=== PATIENT | female | born 1955 | race Caucasian/White ===

== ENCOUNTER 2021-07-07 09:20 | Outpatient (CLI) | payer OTHER | END 2021-07-07 09:21 | disposition home or self-care (01) | LOC: DTY/OP 09:20 | PROVIDERS: ATTEND Surgery | DX: E66.01 Morbid (severe) obesity due to excess calories (principal) | CPT/HCPCS: 97802 ==

== ENCOUNTER 2021-08-20 10:15 | Inpatient (IN) | payer MEDICARE ==
[2021-08-23 11:58] VITALS: BMI 43.5
[2021-08-25] MEDS ORDERED: Fentanyl 100 MCG/2 ML VIAL ONE ×2 (06:17→09:36)
[2021-08-25] MEDS ORDERED: Propofol 500 MG/50 ML VIAL ONE (06:17)
[2021-08-25] MEDS ORDERED: Lidocaine 1% w/Epinephrine 1:100K 20 ML VIAL ONE (06:50)
[2021-08-25] MEDS ORDERED: Bupivacaine 0.25% HCL 30 ML VIAL ONE (06:50)
[2021-08-25] MEDS ORDERED: Promethazine HCl 25 MG/ML VIAL IVPB PRN (06:55)
[2021-08-25] MEDS ORDERED: Promethazine HCl 25 MG/ML VIAL IM PRN ×3 (06:55→09:58)
[2021-08-25] MEDS ORDERED: Ondansetron HCl/PF 4 MG/2 ML Vial IVP PRN (06:55)
[2021-08-25] MEDS ORDERED: Scopolamine 1.5 mg/72 hour Patch ONE (07:00)
[2021-08-25] MEDS ORDERED: Midazolam HCl 2 mg/2 ml Vial ONE (07:20)
[2021-08-25] MEDS ORDERED: Ondansetron PF 4 MG/2 ML Vial ONE ×2 (07:41→09:36)
[2021-08-25] MEDS ORDERED: Dexamethasone 20 MG/5 ML VIAL ONE (07:41)
[2021-08-25] MEDS ORDERED: Rocuronium Bromide 10 MG/ML (10ML VIAL) ONE (07:41)
[2021-08-25] MEDS ORDERED: Ketorolac Tromethamine 30 MG/ML VIAL ONE (07:41)
[2021-08-25] MEDS ORDERED: PROPOFOL 200 MG/20 ML VIAL ONE (07:41)
[2021-08-25] MEDS ORDERED: ePHEDrine 50 MG/ML VIAL ONE (07:41)
[2021-08-25] MEDS ORDERED: PHENYLEPHRINE-NS 100 MCG/ML 10 ML SYRINGE ONE (07:41)
[2021-08-25] MEDS ORDERED: Succinylcholine 200 MG/10 ml SYRINGE FS ONE (07:41)
[2021-08-25] MEDS ORDERED: Albuterol Sulfate HFA (OR ONLY) ONE (08:30)
[2021-08-25] MEDS ORDERED: SUGAMMADEX SODIUM 200 MG/2 ML VIAL ONE (08:58)
[2021-08-25] MEDS ORDERED: Dextrose 5% in Water 1,000 ML IV PRN (09:43)
[2021-08-25] MEDS ORDERED: diphenhydrAMINE 50 MG/ML VIAL IVP PRN ×2 (09:43→09:58)
[2021-08-25] MEDS ORDERED: Dextrose 50% Abboject 50 ML SYRINGE SLOW IVP PRN (09:43)
[2021-08-25] MEDS ORDERED: hydrALAZINE 20 MG/ML VIAL SLOW IVP PRN (09:43)
[2021-08-25] MEDS ORDERED: Ondansetron PF 4 MG/2 ML Vial IVP PRN ×2 (09:43→09:58)
[2021-08-25] MEDS ORDERED: Hydrocodone-Acetamin 15 ML UDCUP PO PRN (09:43)
[2021-08-25] MEDS ORDERED: fentaNYL Citrate/PF 2,000 MCG in Sodium Chloride 0.9% 60 ML IV PRN (09:58)
[2021-08-25] MEDS ORDERED: Naloxone HCl 0.4 mg/ml Vial IV PRN (09:58)
[2021-08-25] MEDS ORDERED: diphenhydrAMINE 50 MG/ML VIAL IM PRN (09:58)
[2021-08-25] MEDS ORDERED: diphenhydrAMINE 25 MG CAP PO PRN (09:58)
[2021-08-25] MEDS ORDERED: Zolpidem Tartrate 5 MG TAB PO PRN (09:58)
[2021-08-25] MEDS ORDERED: PCA Communication Order-Pharmacy FS SCH (10:00)
[2021-08-25] MEDS: D5 1/2 NS w/20 mEq KCL 1,000 ML IV SCH ×2 (15:07→23:36)
[2021-08-25] MEDS: CEFAZOLIN 2 GM, Admixture Fee 1 EACH in Sodium Chloride 0.9% 100 ML IVPB SCH (17:00)
[2021-08-26] MEDS: CEFAZOLIN 2 GM, Admixture Fee 1 EACH in Sodium Chloride 0.9% 100 ML IVPB SCH (00:15)
[2021-08-26] MEDS: D5 1/2 NS w/20 mEq KCL 1,000 ML IV SCH ×3 (01:45→11:14)
[2021-08-26 07:03] LABS: Anion Gap 7 mmol/L (10-20); BUN (Urea Nitrogen) 6 mg/dL (9.8-20.1); Calc. Creatinine Clearance 173 mL/min (70-130); Calcium 8.8 mg/dL (7.8-10.44); Carbon Dioxide 29 mmol/L (23-31); Chloride 107 mmol/L (98-107); Glucose 123 mg/dL (80-115); Potassium 4.1 mmol/L (3.5-5.1); Sodium 139 mmol/L (136-145)
[2021-08-26 07:23] LABS: #Lymphocytes 1.3 thou/uL (1.20-3.40); #Monocytes 0.8 thou/uL (0.11-0.59); #Neutrophils 5.6 thou/uL (1.40-6.50); %Basophils 0.1 % (0.0-1.0); %Eosinophils 0.2 % (0.0-10.0); %Lymphocytes 16.7 % (21.0-51.0); %Monocytes 10.3 % (0.0-10.0); %Neutrophils 72.8 % (42.0-75.0); Hemoglobin 10.7 g/dL (12.0-16.0); Mean Corpuscular Volume 73.5 fL (78.0-98.0); Mean Platelet Volume 8.7 fL (7.4-10.4); Platelet Count 274 thou/uL (130-400); RBC Distribution Width 18.6 % (11.5-14.5); Red Blood Cell (RBC) Count 4.84 mill/uL (4.20-5.40); White Blood Cell (WBC) Count 7.8 thou/uL (4.8-10.8)
[2021-08-26 08:58] LABS: MDiff Complete? YES; Microcytosis SLIGHT = 6-15 cells (100X) (0-5/hpf); Platelet Morphology Comment Appears Adequate; Polychromasia SLIGHT = 2-3 cells (100X) (0-2/hpf)
[2021-08-26] MEDS ORDERED: Enoxaparin Sodium 40 MG/0.4 ML SYRINGE SC SCH (09:00)
[2021-08-26] MEDS ORDERED: Pantoprazole 40 MG VIAL IVP SCH (09:00)
[2021-08-26] MEDS ORDERED: Hydrocodone-Acetamin 15 ML UDCUP PO PRN (09:33)
[2021-08-26 16:15] VITALS: BP 144/81; TEMP 98
== END 2021-08-26 16:40 | disposition home or self-care (01) | DRG 621 ==
LOC: SURG A 08-25 05:45 → SURG B 08-25 14:05
PROVIDERS: ADMIT Surgery; ATTEND Surgery
PROC: 0DB64Z3 Excision of Stomach, Percutaneous Endoscopic Approach, Vertical (ICD-10-PCS; principal; 2021-08-25)
PROC: 0BQT4ZZ Repair Diaphragm, Percutaneous Endoscopic Approach (ICD-10-PCS; 2021-08-25)
PROC: 0DJ08ZZ Inspection of Upper Intestinal Tract, Via Natural or Artificial Opening Endoscopic (ICD-10-PCS; 2021-08-25)
DX: E66.01 Morbid (severe) obesity due to excess calories (principal); Z68.41 Body mass index [BMI] 40.0-44.9, adult; K44.9 Diaphragmatic hernia without obstruction or gangrene; E03.9 Hypothyroidism, unspecified; F32.A Depression, unspecified; Z79.899 Other long term (current) drug therapy; Z79.890 Hormone replacement therapy
CPT/HCPCS: 36415; 80048; 85025; 88307; C1713; C9113; J0690; J1100; J1650; J1885; J2250; J2405; J2704; J3010; J3480; J3490; S0020

== ENCOUNTER 2021-08-20 10:15 | Outpatient (CLI) | payer MEDICARE ==
[2021-08-20 11:41] LABS: ALT (SGPT) 24 U/L (8-55); AST (SGOT) 20 U/L (5-34); Alkaline Phosphatase 82 U/L (40-110); Anion Gap 13 mmol/L (10-20); BUN (Urea Nitrogen) 15 mg/dL (9.8-20.1); Bilirubin, Total 0.3 mg/dL (0.2-1.2); Calc. Creatinine Clearance 0 mL/min (70-130); Calcium 9.4 mg/dL (7.8-10.44); Carbon Dioxide 25 mmol/L (23-31); Chloride 104 mmol/L (98-107); Globulin 3.2 g/dL (2.4-3.5); Glucose 92 mg/dL (80-115); Potassium 4.6 mmol/L (3.5-5.1); Protein, Total 7.2 g/dL (5.8-8.1); Sodium 137 mmol/L (136-145)
[2021-08-20 11:45] LABS: #Monocytes 0.6 10x3/uL (0.0-1.1); #Neutrophils 3.3 10x3/uL (1.5-8.4); %Basophils 0.5 % (0.0-2.0); %Eosinophils 0.4 % (0.0-6.0); %Neutrophils 59.9 % (40.0-75.0); Mean Corpuscular HGB CONC 29.3 g/dL (32.0-36.0); Mean Corpuscular Hemoglobin 20.9 pg (27.0-33.0); Mean Corpuscular Volume 71.2 fl (81.6-98.3); Mean Platelet Volume 10.3 fl (7.4-10.4); Platelet Count 268 10x3/uL (150-450); RBC Distribution Width 19.6 % (11.5-14.5); Red Blood Cell (RBC) Count 5.27 10x6/uL (3.90-5.03); White Blood Cell (WBC) Count 5.5 10x3/uL (3.5-10.5)
[2021-08-20 12:17] LABS: Anisocytosis SLIGHT = 6-15 cells (100X) (0-5/hpf); Hypochromia SLIGHT = 6-15 cells (100X) (0-5/hpf); Microcytosis SLIGHT = 6-15 cells (100X) (0-5/hpf); Stomatocytes SLIGHT = 2-5 cells (100X) (0-1/hpf)
[2021-08-20 12:18] LABS: Platelet Morphology Comment Appears Adequate
[2021-08-20 23:18] LABS: SARS-CoV-2 PCR by NAA Not Detected (NotDetected)
== END 2021-08-20 10:16 | disposition home or self-care (01) ==
LOC: LABBT 10:15
PROVIDERS: ATTEND Surgery
DX: Z01.818 Encounter for other preprocedural examination (principal); Z20.822 Contact with and (suspected) exposure to COVID-19
CPT/HCPCS: 71046; 80053; 83036; 85025; 93005; U0003; U0005; 93010

== ENCOUNTER 2021-09-08 15:15 | Emergency (ER) | payer MEDICARE ==
[~2021-09-08 15:15] MED LIST: Iopamidol 370 76% 50 ML VIAL FS ONE; Iopamidol-370 76% 500 ML 1 ML ONE
[2021-09-08 18:21] LABS: #Eosinphils 0.1 thou/uL (0.0-0.7); #Lymphocytes 1.7 thou/uL (1.20-3.40); #Monocytes 0.6 thou/uL (0.11-0.59); #Neutrophils 4.3 thou/uL (1.40-6.50); %Basophils 0.6 % (0.0-1.0); %Eosinophils 1.2 % (0.0-10.0); %Lymphocytes 25.3 % (21.0-51.0); %Monocytes 9.4 % (0.0-10.0); %Neutrophils 63.5 % (42.0-75.0); Hemoglobin 11.4 g/dL (12.0-16.0); Mean Corpuscular HGB CONC 30.4 g/dL (32.0-36.0); Mean Corpuscular Volume 72.4 fL (78.0-98.0); Mean Platelet Volume 9.9 fL (7.4-10.4); Platelet Count 298 thou/uL (130-400); RBC Distribution Width 18.7 % (11.5-14.5); Red Blood Cell (RBC) Count 5.18 mill/uL (4.20-5.40); White Blood Cell (WBC) Count 6.7 thou/uL (4.8-10.8)
[2021-09-08 18:47] LABS: ALT (SGPT) 16 U/L (8-55); AST (SGOT) 15 U/L (5-34); Albumin 3.8 g/dL (3.4-4.8); Alkaline Phosphatase 88 U/L (40-110); Anion Gap 14 mmol/L (10-20); BUN (Urea Nitrogen) 14 mg/dL (9.8-20.1); Bilirubin, Total 0.3 mg/dL (0.2-1.2); Calc. Creatinine Clearance 0 mL/min (70-130); Calcium 9.9 mg/dL (7.8-10.44); Carbon Dioxide 25 mmol/L (23-31); Chloride 105 mmol/L (98-107); Glucose 91 mg/dL (80-115); Lipase 92 U/L (8-78); Protein, Total 6.8 g/dL (5.8-8.1); Sodium 140 mmol/L (136-145)
[2021-09-08] MEDS ORDERED: Ondansetron PF 4 MG/2 ML Vial ONE (18:48)
[2021-09-08] MEDS ORDERED: Morphine 4 MG/ML VIAL ONE (18:48)
== END 2021-09-08 21:30 | disposition home or self-care (01) ==
LOC: ERS 15:15
DX: R10.10 Upper abdominal pain, unspecified (principal); G89.18 Other acute postprocedural pain; K44.9 Diaphragmatic hernia without obstruction or gangrene; Z79.899 Other long term (current) drug therapy
CPT/HCPCS: 36415; 71275; 74177; 80053; 83690; 84484; 85025; 93005; 96374; 96375; J2270; J2405; Q9967

== ENCOUNTER 2021-10-01 13:13 | Inpatient (IN) | payer MEDICARE ==
[2021-10-01] MEDS ORDERED: Cefepime 2 GM VIAL ONE (13:51)
[2021-10-01 14:22] LABS: #Monocytes 0.6 thou/uL (0.11-0.59); #Neutrophils 8.2 thou/uL (1.40-6.50); %Basophils 0.4 % (0.0-1.0); %Eosinophils 0.5 % (0.0-10.0); %Lymphocytes 10.3 % (21.0-51.0); %Monocytes 5.7 % (0.0-10.0); %Neutrophils 83.2 % (42.0-75.0); Hemoglobin 11.2 g/dL (12.0-16.0); Mean Corpuscular HGB CONC 31.3 g/dL (32.0-36.0); Mean Corpuscular Hemoglobin 22.6 pg (27.0-31.0); Mean Corpuscular Volume 72.2 fL (78.0-98.0); Mean Platelet Volume 10.7 fL (7.4-10.4); Platelet Count 240 thou/uL (130-400); RBC Distribution Width 18.3 % (11.5-14.5); Red Blood Cell (RBC) Count 4.95 mill/uL (4.20-5.40); White Blood Cell (WBC) Count 9.8 thou/uL (4.8-10.8)
[2021-10-01] MEDS ORDERED: Vancomycin 1 GM/200 ML BAG ONE (14:38)
[2021-10-01] MEDS ORDERED: metroNIDAZOLE 500 MG in Premix Bag 1 BAG IVPB SCH ×2 (14:45→22:00)
[2021-10-01 14:48] LABS: ALT (SGPT) 25 U/L (8-55); AST (SGOT) 21 U/L (5-34); Albumin 3.6 g/dL (3.4-4.8); Alkaline Phosphatase 97 U/L (40-110); Anion Gap 13 mmol/L (10-20); BUN (Urea Nitrogen) 9 mg/dL (9.8-20.1); Bilirubin, Total 0.6 mg/dL (0.2-1.2); CK (CPK) 27 U/L (29-168); Calc. Creatinine Clearance 0 mL/min (70-130); Calcium 9.4 mg/dL (7.8-10.44); Carbon Dioxide 26 mmol/L (23-31); Chloride 104 mmol/L (98-107); Globulin 3.1 g/dL (2.4-3.5); Glucose 109 mg/dL (80-115); Lipase 31 U/L (8-78); Potassium 3.7 mmol/L (3.5-5.1); Protein, Total 6.7 g/dL (5.8-8.1); Sodium 139 mmol/L (136-145)
[2021-10-01] MEDS ORDERED: Ondansetron ODT 4 MG TAB SL PRN (15:00)
[2021-10-01] MEDS ORDERED: D5 1/2 NS w/20 mEq KCL 1,000 ML IV SCH (15:00)
[2021-10-01] MEDS ORDERED: Acetaminophen 325 MG TAB PO PRN (15:00)
[2021-10-01 16:23] LABS: SARS-CoV-2 NAA Rapid Test Not Detected (NotDetected)
[2021-10-01] MEDS ORDERED: Acetaminophen 650 MG Suppository PR PRN (18:00)
[2021-10-01] MEDS ORDERED: Pantoprazole 40 MG VIAL IVP SCH ×2 (18:11→18:30)
[2021-10-01 18:36] LABS: Hemoglobin 10.4 g/dL (12.0-16.0); Platelet Count 205 thou/uL (130-400)
[2021-10-01] MEDS: Sodium Chloride 0.9% 1,000 ML IV SCH (20:12)
[2021-10-01] MEDS: Morphine 4 MG/ML VIAL SLOW IVP PRN (20:13)
[2021-10-01] MEDS: Ondansetron PF 4 MG/2 ML Vial IVP PRN (20:13)
[2021-10-01 22:11] LABS: Hemoglobin 10.5 g/dL (12.0-16.0)
[2021-10-02] MEDS ORDERED: Cefepime 2 GM in Sodium Chloride 0.9% 100 ML IVPB SCH (02:00)
[2021-10-02] MEDS: Ondansetron PF 4 MG/2 ML Vial IVP PRN (02:30)
[2021-10-02] MEDS: Morphine 4 MG/ML VIAL SLOW IVP PRN ×3 (02:30→20:10)
[2021-10-02] MEDS: Sodium Chloride 0.9% 1,000 ML IV SCH ×2 (05:36→13:23)
[2021-10-02] MEDS: Pantoprazole 40 MG VIAL IVP SCH ×2 (10:34→20:10)
[2021-10-02 11:44] LABS: #Eosinphils 0.1 thou/uL (0.0-0.7); #Lymphocytes 1.4 thou/uL (1.20-3.40); #Monocytes 0.6 thou/uL (0.11-0.59); #Neutrophils 7.1 thou/uL (1.40-6.50); %Basophils 0.2 % (0.0-1.0); %Eosinophils 1.3 % (0.0-10.0); %Lymphocytes 15.4 % (21.0-51.0); %Monocytes 6.1 % (0.0-10.0); Mean Corpuscular Hemoglobin 22.5 pg (27.0-31.0); Mean Corpuscular Volume 72.7 fL (78.0-98.0); Mean Platelet Volume 10.4 fL (7.4-10.4); Platelet Count 214 thou/uL (130-400); RBC Distribution Width 18.5 % (11.5-14.5); Red Blood Cell (RBC) Count 4.44 mill/uL (4.20-5.40); White Blood Cell (WBC) Count 9.2 thou/uL (4.8-10.8)
[2021-10-02 12:08] LABS: ALT (SGPT) 18 U/L (8-55); AST (SGOT) 17 U/L (5-34); Albumin 2.9 g/dL (3.4-4.8); Alkaline Phosphatase 78 U/L (40-110); Anion Gap 12 mmol/L (10-20); BUN (Urea Nitrogen) 7 mg/dL (9.8-20.1); Bilirubin, Total 0.5 mg/dL (0.2-1.2); Calc. Creatinine Clearance 151 mL/min (70-130); Calcium 8.7 mg/dL (7.8-10.44); Carbon Dioxide 23 mmol/L (23-31); Chloride 107 mmol/L (98-107); Globulin 3.3 g/dL (2.4-3.5); Glucose 86 mg/dL (80-115); Potassium 3.5 mmol/L (3.5-5.1); Protein, Total 6.2 g/dL (5.8-8.1); Sodium 138 mmol/L (136-145)
[2021-10-02] MEDS ORDERED: Famotidine/PF 20 mg/2ml Vial SLOW IVP SCH (22:15)
[2021-10-03] MEDS: Sodium Chloride 0.9% 1,000 ML IV SCH ×3 (01:12→20:31)
[2021-10-03 06:12] LABS: Reticulocyte Count 1.3 % (0.5-1.5)
[2021-10-03 06:13] LABS: #Eosinphils 0.1 thou/uL (0.0-0.7); #Lymphocytes 1.3 thou/uL (1.20-3.40); #Monocytes 0.5 thou/uL (0.11-0.59); #Neutrophils 6.3 thou/uL (1.40-6.50); %Eosinophils 1.8 % (0.0-10.0); %Lymphocytes 16.1 % (21.0-51.0); %Monocytes 6.1 % (0.0-10.0); %Neutrophils 75.9 % (42.0-75.0); Hemoglobin 10.1 g/dL (12.0-16.0); Mean Corpuscular HGB CONC 30.8 g/dL (32.0-36.0); Mean Corpuscular Hemoglobin 22.4 pg (27.0-31.0); Mean Corpuscular Volume 72.7 fL (78.0-98.0); Mean Platelet Volume 10.6 fL (7.4-10.4); Platelet Count 199 thou/uL (130-400); RBC Distribution Width 18.5 % (11.5-14.5); White Blood Cell (WBC) Count 8.2 thou/uL (4.8-10.8)
[2021-10-03] MEDS: Morphine 4 MG/ML VIAL SLOW IVP PRN ×3 (06:56→19:02)
[2021-10-03] MEDS: Pantoprazole 40 MG VIAL IVP SCH ×2 (08:41→20:31)
[2021-10-03] MEDS ORDERED: Lidocaine 1% PF 5 ML VIAL ONE (10:00)
[2021-10-03] MEDS ORDERED: PROPOFOL 200 MG/20 ML VIAL ONE (10:00)
[2021-10-03] MEDS ORDERED: Ondansetron HCl/PF 4 MG/2 ML Vial IVP PRN (10:12)
[2021-10-03] MEDS ORDERED: Promethazine HCl 25 MG/ML VIAL IM PRN (10:12)
[2021-10-03] MEDS ORDERED: Promethazine HCl 25 MG/ML VIAL IVPB PRN (10:12)
[2021-10-03] MEDS ORDERED: ceFAZolin Sodium (SDC) 2 GM in Premix Bag 1 BAG IVPB SCH (12:00)
[2021-10-03] MEDS: Mag-Al Plus 1200 MG/1200 MG/120 MG/30 ML UDCUP PO PRN (18:51)
[2021-10-03] MEDS: Venlafaxine HCl XR 150 MG CAP PO SCH (20:30)
[2021-10-03] MEDS: rOPINIRole HCl 2 MG TAB PO SCH ×2 (20:30→20:39)
[2021-10-04] MEDS: Levothyroxine Sodium 100 MCG TAB PO SCH (05:00)
[2021-10-04] MEDS: Morphine 4 MG/ML VIAL SLOW IVP PRN ×3 (05:32→20:20)
[2021-10-04] MEDS: Sodium Chloride 0.9% 1,000 ML IV SCH ×2 (06:04→17:10)
[2021-10-04] MEDS ORDERED: Midazolam HCl 2 mg/2 ml Vial ONE (07:59)
[2021-10-04] MEDS ORDERED: Fentanyl 100 MCG/2 ML VIAL ONE ×3 (07:59→16:35)
[2021-10-04] MEDS ORDERED: HYDROmorphone 2 MG/ML VIAL ONE ×2 (07:59→12:52)
[2021-10-04] MEDS ORDERED: ceFAZolin 2 GM/DEX 5% 100 ML BAG ONE (08:07)
[2021-10-04] MEDS: Pantoprazole 40 MG VIAL IVP SCH ×2 (09:00→20:13)
[2021-10-04] MEDS ORDERED: Sodium Chloride 0.9% 10 ML ONE (09:20)
[2021-10-04] MEDS ORDERED: Lidocaine 1% PF 5 ML VIAL ONE (09:38)
[2021-10-04] MEDS ORDERED: Ondansetron PF 4 MG/2 ML Vial ONE (09:38)
[2021-10-04] MEDS ORDERED: Dexamethasone 20 MG/5 ML VIAL ONE (09:38)
[2021-10-04] MEDS ORDERED: Glycopyrrolate 0.2 MG/ML 5 ML SYRINGE ONE (09:38)
[2021-10-04] MEDS ORDERED: ePHEDrine 50 MG/ML VIAL ONE (09:38)
[2021-10-04] MEDS ORDERED: Phenylephrine 10 MG/ML VIAL ONE (09:38)
[2021-10-04] MEDS ORDERED: PROPOFOL 200 MG/20 ML VIAL ONE (09:38)
[2021-10-04] MEDS ORDERED: Rocuronium Bromide 10 MG/ML (10ML VIAL) ONE (09:38)
[2021-10-04] MEDS ORDERED: SUGAMMADEX SODIUM 200 MG/2 ML VIAL ONE (13:47)
[2021-10-04] MEDS ORDERED: Hydrocodone-Acetamin 15 ML UDCUP PO PRN (13:47)
[2021-10-04] MEDS ORDERED: Morphine 2 MG/ML VIAL SLOW IVP PRN (13:47)
[2021-10-04] MEDS ORDERED: Dextrose 5% in Water 1,000 ML IV PRN (13:47)
[2021-10-04] MEDS ORDERED: Ondansetron PF 4 MG/2 ML Vial IVP PRN (13:47)
[2021-10-04] MEDS ORDERED: diphenhydrAMINE 50 MG/ML VIAL IVP PRN (13:47)
[2021-10-04] MEDS ORDERED: hydrALAZINE 20 MG/ML VIAL SLOW IVP PRN (13:47)
[2021-10-04] MEDS ORDERED: Dextrose 50% Abboject 50 ML SYRINGE SLOW IVP PRN (13:47)
[2021-10-04] MEDS ORDERED: Promethazine HCl 25 MG/ML VIAL IM PRN ×2 (13:47→13:58)
[2021-10-04] MEDS ORDERED: Promethazine HCl 25 MG/ML VIAL IVPB PRN (13:58)
[2021-10-04] MEDS ORDERED: Ondansetron HCl/PF 4 MG/2 ML Vial IVP PRN (13:58)
[2021-10-04] MEDS ORDERED: Meperidine HCl/PF 25 MG/ML VIAL SLOW IVP PRN (13:58)
[2021-10-04] MEDS ORDERED: HYDROmorphone 2 MG/ML VIAL SLOW IVP PRN (13:58)
[2021-10-04] MEDS ORDERED: Morphine 4 MG/ML VIAL SLOW IVP PRN (14:08)
[2021-10-04] MEDS ORDERED: HYDROmorphone 0.5 MG/0.5 ML SYRINGE ONE ×2 (15:00→15:17)
[2021-10-04] MEDS: D5 1/2 NS w/20 mEq KCL 1,000 ML IV SCH ×2 (17:11→18:33)
[2021-10-04] MEDS: Ketorolac Tromethamine 30 MG/ML VIAL IVP SCH ×2 (18:34→23:14)
[2021-10-04] MEDS: ceFAZolin Sodium/D5W 2 GM in Premix Bag 1 BAG IVPB SCH (18:35)
[2021-10-04] MEDS: rOPINIRole HCl 2 MG TAB PO SCH (20:12)
[2021-10-04] MEDS: Venlafaxine HCl XR 150 MG CAP PO SCH (20:13)
[2021-10-04] MEDS: Mag-Al Plus 1200 MG/1200 MG/120 MG/30 ML UDCUP PO PRN (23:14)
[2021-10-05] MEDS: ceFAZolin Sodium/D5W 2 GM in Premix Bag 1 BAG IVPB SCH (01:56)
[2021-10-05] MEDS: Sodium Chloride 0.9% 1,000 ML IV SCH ×2 (04:03→17:32)
[2021-10-05] MEDS: D5 1/2 NS w/20 mEq KCL 1,000 ML IV SCH ×2 (04:03→18:16)
[2021-10-05 05:11] LABS: #Lymphocytes 0.8 thou/uL (1.20-3.40); #Monocytes 0.8 thou/uL (0.11-0.59); #Neutrophils 7.1 thou/uL (1.40-6.50); %Basophils 0.1 % (0.0-1.0); %Eosinophils 0.1 % (0.0-10.0); %Lymphocytes 8.6 % (21.0-51.0); %Monocytes 9.5 % (0.0-10.0); %Neutrophils 81.7 % (42.0-75.0); Hemoglobin 9.5 g/dL (12.0-16.0); Mean Corpuscular HGB CONC 31.3 g/dL (32.0-36.0); Mean Corpuscular Hemoglobin 22.8 pg (27.0-31.0); Mean Corpuscular Volume 73.1 fL (78.0-98.0); Mean Platelet Volume 9.9 fL (7.4-10.4); Platelet Count 223 thou/uL (130-400); RBC Distribution Width 18.4 % (11.5-14.5); Red Blood Cell (RBC) Count 4.14 mill/uL (4.20-5.40); White Blood Cell (WBC) Count 8.7 thou/uL (4.8-10.8)
[2021-10-05] MEDS: Ketorolac Tromethamine 30 MG/ML VIAL IVP SCH ×3 (05:23→18:16)
[2021-10-05] MEDS: Levothyroxine Sodium 100 MCG TAB PO SCH (05:24)
[2021-10-05 05:28] LABS: Anion Gap 11 mmol/L (10-20); BUN (Urea Nitrogen) 5 mg/dL (9.8-20.1); Calc. Creatinine Clearance 145 mL/min (70-130); Calcium 8.9 mg/dL (7.8-10.44); Carbon Dioxide 25 mmol/L (23-31); Chloride 105 mmol/L (98-107); Glucose 171 mg/dL (80-115); Potassium 3.8 mmol/L (3.5-5.1); Sodium 137 mmol/L (136-145)
[2021-10-05] MEDS: Morphine 4 MG/ML VIAL SLOW IVP PRN ×3 (05:34→16:20)
[2021-10-05] MEDS: Pantoprazole 40 MG VIAL IVP SCH ×3 (09:20→20:17)
[2021-10-05] MEDS: rOPINIRole HCl 2 MG TAB PO SCH (20:17)
[2021-10-05] MEDS: Venlafaxine HCl XR 150 MG CAP PO SCH (20:17)
[2021-10-06] MEDS: Ketorolac Tromethamine 30 MG/ML VIAL IVP SCH ×5 (00:07→23:44)
[2021-10-06] MEDS: Sodium Chloride 0.9% 1,000 ML IV SCH ×3 (01:14→18:41)
[2021-10-06] MEDS: D5 1/2 NS w/20 mEq KCL 1,000 ML IV SCH ×4 (02:00→19:58)
[2021-10-06] MEDS: Levothyroxine Sodium 100 MCG TAB PO SCH (05:28)
[2021-10-06 06:53] LABS: #Eosinphils 0.3 thou/uL (0.0-0.7); #Lymphocytes 1.2 thou/uL (1.20-3.40); #Monocytes 0.7 thou/uL (0.11-0.59); #Neutrophils 6.4 thou/uL (1.40-6.50); %Basophils 0.5 % (0.0-1.0); %Eosinophils 3.1 % (0.0-10.0); %Lymphocytes 13.8 % (21.0-51.0); %Monocytes 8.5 % (0.0-10.0); %Neutrophils 74.2 % (42.0-75.0); Hemoglobin 9.7 g/dL (12.0-16.0); Mean Corpuscular HGB CONC 31.4 g/dL (32.0-36.0); Mean Corpuscular Volume 73.1 fL (78.0-98.0); Mean Platelet Volume 9.8 fL (7.4-10.4); Platelet Count 252 thou/uL (130-400); RBC Distribution Width 18.5 % (11.5-14.5); White Blood Cell (WBC) Count 8.6 thou/uL (4.8-10.8)
[2021-10-06 07:14] LABS: ALT (SGPT) 15 U/L (8-55); AST (SGOT) 22 U/L (5-34); Albumin 3.1 g/dL (3.4-4.8); Alkaline Phosphatase 79 U/L (40-110); Anion Gap 10 mmol/L (10-20); BUN (Urea Nitrogen) 7 mg/dL (9.8-20.1); Bilirubin, Total 0.4 mg/dL (0.2-1.2); Calc. Creatinine Clearance 169 mL/min (70-130); Calcium 8.7 mg/dL (7.8-10.44); Carbon Dioxide 25 mmol/L (23-31); Chloride 110 mmol/L (98-107); Globulin 3.3 g/dL (2.4-3.5); Glucose 106 mg/dL (80-115); Potassium 4.1 mmol/L (3.5-5.1); Protein, Total 6.4 g/dL (5.8-8.1); Sodium 141 mmol/L (136-145)
[2021-10-06] MEDS: Pantoprazole 40 MG VIAL IVP SCH ×2 (08:29→09:51)
[2021-10-06] MEDS ORDERED: Lidocaine 1% (PF) 30 ML VIAL ONE (09:34)
[2021-10-06] MEDS: Morphine 4 MG/ML VIAL SLOW IVP PRN ×2 (10:38→15:42)
[2021-10-06] MEDS ORDERED: Lorazepam 2 MG/ML VIAL SLOW IVP SCH (10:45)
[2021-10-06] MEDS ORDERED: Hydrocodone-Acetamin 15 ML UDCUP PO PRN (19:05)
[2021-10-06] MEDS ORDERED: Morphine 4 MG/ML VIAL SLOW IVP PRN ×2 (19:05)
[2021-10-06] MEDS ORDERED: diphenhydrAMINE 25 MG CAP PO PRN (19:15)
[2021-10-06] MEDS ORDERED: diphenhydrAMINE 50 MG/ML VIAL IM/IV PRN (19:15)
[2021-10-06] MEDS ORDERED: Morphine Sulfate 100 MG in Dextrose 5% in Water 98 ML IV SCH (19:15)
[2021-10-06] MEDS: rOPINIRole HCl 2 MG TAB PO SCH (19:58)
[2021-10-06] MEDS: Venlafaxine HCl XR 150 MG CAP PO SCH (19:58)
[2021-10-07] MEDS: Sodium Chloride 0.9% 1,000 ML IV SCH ×2 (03:41→15:04)
[2021-10-07] MEDS: D5 1/2 NS w/20 mEq KCL 1,000 ML IV SCH ×3 (03:41→20:02)
[2021-10-07] MEDS: Ketorolac Tromethamine 30 MG/ML VIAL IVP SCH ×4 (06:00→23:47)
[2021-10-07] MEDS: Levothyroxine Sodium 100 MCG TAB PO SCH (06:00)
[2021-10-07] MEDS: Pantoprazole 40 MG VIAL IVP SCH (08:51)
[2021-10-07] MEDS: Acetaminophen 500 MG TAB PO SCH ×2 (18:36→23:48)
[2021-10-07] MEDS: Ondansetron PF 4 MG/2 ML Vial IVP PRN (19:33)
[2021-10-07] MEDS: rOPINIRole HCl 2 MG TAB PO SCH (19:59)
[2021-10-07] MEDS: Venlafaxine HCl XR 150 MG CAP PO SCH (20:00)
[2021-10-08] MEDS: Sodium Chloride 0.9% 1,000 ML IV SCH ×2 (01:38→14:45)
[2021-10-08] MEDS: Acetaminophen 500 MG TAB PO SCH (05:49)
[2021-10-08] MEDS: Ketorolac Tromethamine 30 MG/ML VIAL IVP SCH ×3 (05:50→18:31)
[2021-10-08] MEDS: Levothyroxine Sodium 100 MCG TAB PO SCH (05:50)
[2021-10-08] MEDS: D5 1/2 NS w/20 mEq KCL 1,000 ML IV SCH ×3 (06:55→20:39)
[2021-10-08] MEDS: Pantoprazole 40 MG VIAL IVP SCH (08:39)
[2021-10-08] MEDS: Hydrocodone-Acetamin 15 ML UDCUP PO PRN ×2 (11:17→20:38)
[2021-10-08] MEDS: Lorazepam 2 MG/ML VIAL SLOW IVP PRN (11:19)
[2021-10-08 13:50] LABS: SARS-CoV-2 PCR by NAA Not Detected (NotDetected)
[2021-10-08] MEDS: rOPINIRole HCl 2 MG TAB PO SCH (20:58)
[2021-10-08] MEDS: Venlafaxine HCl XR 150 MG CAP PO SCH (20:58)
[2021-10-09] MEDS: Ketorolac Tromethamine 30 MG/ML VIAL IVP SCH ×4 (01:53→19:01)
[2021-10-09] MEDS: D5 1/2 NS w/20 mEq KCL 1,000 ML IV SCH ×2 (06:57→20:46)
[2021-10-09] MEDS: Levothyroxine Sodium 100 MCG TAB PO SCH (07:40)
[2021-10-09] MEDS: Pantoprazole 40 MG VIAL IVP SCH (08:36)
[2021-10-09] MEDS: Hydrocodone-Acetamin 15 ML UDCUP PO PRN (16:58)
[2021-10-09] MEDS: rOPINIRole HCl 2 MG TAB PO SCH (20:41)
[2021-10-09] MEDS: Venlafaxine HCl XR 150 MG CAP PO SCH (20:41)
[2021-10-09] MEDS: Lorazepam 2 MG/ML VIAL SLOW IVP PRN (20:45)
[2021-10-10] MEDS: Pantoprazole 40 MG VIAL IVP SCH (03:47)
[2021-10-10] MEDS: Levothyroxine Sodium 100 MCG TAB PO SCH (05:57)
[2021-10-10 06:00] LABS: INR-International Normal Ratio 1.1; PTT 31.1 sec (22.9-36.1); Prothrombin Time 14.6 sec (12.0-14.7)
[2021-10-10 06:11] LABS: Cardiac Risk 4.4 (Less than 4.5); Cholesterol 136 mg/dl (< 200 Desired); HDL Cholesterol 31 mg/dL (>60 Neg Risk); LDL Cholesterol, Calculated 70 mg/dL; Magnesium 1.8 mg/dL (1.6-2.6); Triglycerides 174 mg/dL (Less than 150)
[2021-10-10 06:12] LABS: ALT (SGPT) 12 U/L (8-55); AST (SGOT) 13 U/L (5-34); Albumin 2.8 g/dL (3.4-4.8); Alkaline Phosphatase 82 U/L (40-110); Anion Gap 11 mmol/L (10-20); BUN (Urea Nitrogen) Less than 4 mg/dL (9.8-20.1); Bilirubin, Total 0.8 mg/dL (0.2-1.2); Calc. Creatinine Clearance 161 mL/min (70-130); Calcium 8.8 mg/dL (7.8-10.44); Carbon Dioxide 26 mmol/L (23-31); Chloride 105 mmol/L (98-107); Globulin 3.1 g/dL (2.4-3.5); Glucose 117 mg/dL (80-115); Potassium 3.8 mmol/L (3.5-5.1); Protein, Total 5.9 g/dL (5.8-8.1); Sodium 138 mmol/L (136-145)
[2021-10-10 06:13] LABS: Phosphorus 3.8 mg/dL (2.3-4.7)
[2021-10-10 07:08] LABS: Hemoglobin 9.4 g/dL (12.0-16.0); Mean Corpuscular HGB CONC 30.5 g/dL (32.0-36.0); Mean Corpuscular Hemoglobin 22.3 pg (27.0-31.0); Mean Corpuscular Volume 72.9 fL (78.0-98.0); Mean Platelet Volume 10.6 fL (7.4-10.4); Platelet Count 225 thou/uL (130-400); RBC Distribution Width 18.4 % (11.5-14.5); Red Blood Cell (RBC) Count 4.21 mill/uL (4.20-5.40); White Blood Cell (WBC) Count 6.6 thou/uL (4.8-10.8)
[2021-10-10] MEDS ORDERED: Multivitamins, Adult 10 ML, TRACE ELEMENT CONCENTRATE 1 ML in CLINIMIX E 5/20 2,000 ML IV SCH (14:00)
[2021-10-10] MEDS: D5 1/2 NS w/20 mEq KCL 1,000 ML IV SCH (16:01)
[2021-10-10 16:57] VITALS: BMI 39.9
[2021-10-10] MEDS ORDERED: Cepastat Lozenges 1 LOZ PO PRN (19:37)
[2021-10-10] MEDS: Lorazepam 2 MG/ML VIAL SLOW IVP PRN (20:17)
[2021-10-10] MEDS: rOPINIRole HCl 2 MG TAB PO SCH (20:18)
[2021-10-10] MEDS: Venlafaxine HCl XR 150 MG CAP PO SCH (20:18)
[2021-10-11] MEDS: D5 1/2 NS w/20 mEq KCL 1,000 ML IV SCH (00:11)
[2021-10-11] MEDS: Hydrocodone-Acetamin 15 ML UDCUP PO PRN (00:24)
[2021-10-11] MEDS: Levothyroxine Sodium 100 MCG TAB PO SCH (05:31)
[2021-10-11 06:30] LABS: Cardiac Risk 4.3 (Less than 4.5); Cholesterol 151 mg/dl (< 200 Desired); HDL Cholesterol 35 mg/dL (>60 Neg Risk); LDL Cholesterol, Calculated 78 mg/dL; Magnesium 1.8 mg/dL (1.6-2.6); Triglycerides 189 mg/dL (Less than 150)
[2021-10-11] MEDS: Ondansetron PF 4 MG/2 ML Vial IVP PRN (09:34)
[2021-10-11] MEDS: Pantoprazole 40 MG VIAL IVP SCH (09:41)
[2021-10-11 12:12] VITALS: BP 152/84; TEMP 98
== END 2021-10-11 14:45 | disposition home or self-care (01) | DRG 326 ==
LOC: ERS 13:13 → ERHOLD 14:23 → MSONC 17:46 → SURG A 10-04 17:43
PROVIDERS: ADMIT Internal Medicine; ATTEND Internal Medicine
PROC: 0BQT4ZZ Repair Diaphragm, Percutaneous Endoscopic Approach (ICD-10-PCS; principal; 2021-10-04)
PROC: 0DJ08ZZ Inspection of Upper Intestinal Tract, Via Natural or Artificial Opening Endoscopic (ICD-10-PCS; 2021-10-04)
PROC: 0W9B30Z Drainage of Left Pleural Cavity with Drainage Device, Percutaneous Approach (ICD-10-PCS; 2021-10-06)
PROC: 02HV33Z Insertion of Infusion Device into Superior Vena Cava, Percutaneous Approach (ICD-10-PCS; 2021-10-09)
PROC: B548ZZA Ultrasonography of Superior Vena Cava, Guidance (ICD-10-PCS; 2021-10-09)
PROC: 3E0336Z Introduction of Nutritional Substance into Peripheral Vein, Percutaneous Approach (ICD-10-PCS; 2021-10-10)
DX: K44.0 Diaphragmatic hernia with obstruction, without gangrene (principal); J18.9 Pneumonia, unspecified organism; J90 Pleural effusion, not elsewhere classified; K57.92 Diverticulitis of intestine, part unspecified, without perforation or abscess without bleeding; J93.9 Pneumothorax, unspecified; D50.9 Iron deficiency anemia, unspecified; I10 Essential (primary) hypertension; F32.A Depression, unspecified; E66.9 Obesity, unspecified; R13.19 Other dysphagia; G25.81 Restless legs syndrome; E03.9 Hypothyroidism, unspecified; F41.9 Anxiety disorder, unspecified; Z98.84 Bariatric surgery status; Z79.890 Hormone replacement therapy; Z79.891 Long term (current) use of opiate analgesic; Z79.899 Other long term (current) drug therapy; Z90.49 Acquired absence of other specified parts of digestive tract; Z68.39 Body mass index [BMI] 39.0-39.9, adult; Z90.89 Acquired absence of other organs
CPT/HCPCS: 36415; 36569; 71045; 74018; 74240; 80048; 80053; 80061; 82550; 82607; 82728; 82746; 83540; 83605; 83690; 83735; 84100; 84134; 84484; 85025; 85027; 85046; 85610; 85730; 87040; 93005; 96365; 96366; 96367; C1713; C1751; C1776; C9113; J0360; J0692; J1100; J1170; J1200; J1885; J1956; J2001; J2060; J2250; J2270; J2274; J2370; J2405; J2704; J3010; J3370; J3480; J3490; J7050; J7070; J7620; S0028; U0002; U0003; U0005

== ENCOUNTER 2021-11-23 19:36 | Inpatient (IN) | payer MEDICARE ==
[2021-11-24] MEDS ORDERED: Ondansetron ODT 4 MG TAB PO PRN (00:01)
[2021-11-24] MEDS ORDERED: Acetaminophen 325 MG TAB PO PRN (00:02)
[2021-11-24] MEDS ORDERED: Pantoprazole 40 MG VIAL IVP SCH (00:15)
[2021-11-24] MEDS: Sodium Chloride 0.9% 1,000 ML IV SCH ×6 (00:29→22:37)
[2021-11-24 01:42] LABS: SARS-CoV-2 NAA Rapid Test Not Detected (NotDetected)
[2021-11-24] MEDS: Pantoprazole 40 MG VIAL IVP SCH ×2 (08:02→20:14)
[2021-11-24 10:39] VITALS: BMI 36.2
[2021-11-24] MEDS ORDERED: Rocuronium Bromide 10 MG/ML (10ML VIAL) ONE (12:14)
[2021-11-24] MEDS ORDERED: PROPOFOL 200 MG/20 ML VIAL ONE (12:14)
[2021-11-24] MEDS ORDERED: Lidocaine 1% PF 5 ML VIAL ONE (12:14)
[2021-11-24] MEDS ORDERED: Dexamethasone 20 MG/5 ML VIAL ONE (12:14)
[2021-11-24] MEDS ORDERED: Ondansetron PF 4 MG/2 ML Vial ONE (12:14)
[2021-11-24] MEDS ORDERED: Succinylcholine 200 MG/10 ml SYRINGE FS ONE (12:14)
[2021-11-24] MEDS ORDERED: Bisacodyl 10 MG SUPP PR PRN (17:56)
[2021-11-24] MEDS ORDERED: Fleet Enema 133 ML BOT FS PRN (17:56)
[2021-11-24] MEDS: Morphine 4 MG/ML VIAL SLOW IVP PRN (20:14)
[2021-11-25] MEDS: Morphine 4 MG/ML VIAL SLOW IVP PRN (01:37)
[2021-11-25] MEDS: Sodium Chloride 0.9% 1,000 ML IV SCH ×3 (04:44→09:05)
[2021-11-25] MEDS ORDERED: Polyethylene Glycol 3350 17 GM Packet PO SCH (09:00)
[2021-11-25] MEDS: Pantoprazole 40 MG VIAL IVP SCH (09:06)
[2021-11-25 11:30] VITALS: BP 135/83; TEMP 98
== END 2021-11-25 14:05 | disposition home or self-care (01) | DRG 392 ==
LOC: ERS 19:36 → SJJU 20:40
PROVIDERS: ADMIT Surgery; ATTEND Surgery
PROC: 0DC58ZZ Extirpation of Matter from Esophagus, Via Natural or Artificial Opening Endoscopic (ICD-10-PCS; principal; 2021-11-24)
DX: K44.0 Diaphragmatic hernia with obstruction, without gangrene (principal); Z20.822 Contact with and (suspected) exposure to COVID-19; E66.01 Morbid (severe) obesity due to excess calories; I10 Essential (primary) hypertension; K21.9 Gastro-esophageal reflux disease without esophagitis; E03.9 Hypothyroidism, unspecified; Z90.49 Acquired absence of other specified parts of digestive tract; Z79.899 Other long term (current) drug therapy; Z79.890 Hormone replacement therapy; Z68.36 Body mass index [BMI] 36.0-36.9, adult; Z98.84 Bariatric surgery status
CPT/HCPCS: 99284; C9113; J1100; J2270; J2405; J2704; J7050; Q0162; U0002

== ENCOUNTER 2022-02-04 08:45 | Outpatient (CLI) | payer MEDICARE | END 2022-02-04 08:46 | disposition home or self-care (01) | LOC: RAD 08:45 | PROVIDERS: ATTEND Surgery | DX: K44.9 Diaphragmatic hernia without obstruction or gangrene (principal); K21.9 Gastro-esophageal reflux disease without esophagitis | CPT/HCPCS: 74220 ==